=== PATIENT | male | born 1935 | race Caucasian/White ===

== ENCOUNTER 2023-03-31 16:24 | Emergency (ER) | payer MEDICARE, BC ==
[2023-03-31] VITALS (12 sets, daily range): BP systolic 99–153; BP diastolic 64–91
[~2023-03-31] VITALS: Ht 167.6 cm; Wt 76.0 kg
[2023-03-31 17:17] LABS: BASO% 0.6 % (0-3); EOS% 2.7 % (0-8); HEMATOCRIT 37.1 % (39.0-50.0); HEMOGLOBIN 11.5 g/dl (14.0-18.0); IMMATURE GRANULOCYTES 0.1 % (0.0-5.0); MEAN CELL VOLUME 82.4 fL CALC (80.0-100.0); MEAN CORPUSCULAR HGB 25.6 pG CALC (26.0-32.0); MONO% 9.8 % (2-13); NEUT# 5.1 thou/uL (1.82-7.42); NEUT% 75.8 % (42-76); RED BLOOD COUNT 4.5 mill/uL (4.70-6.10); RED CELL DISTRI WIDTH 16.7 % (11.5-15.5)
[2023-03-31 17:35] LABS: ALBUMIN 4.2 g/dL (3.2-5.0); BILIRUBIN, TOTAL 0.6 mg/dL (0.2-1.3); CREATININE 1.4 mg/dL (0.7-1.3); INTERNATIONAL NORMALIZED RATIO 1.4 RATIO (0.7-1.3); POTASSIUM 3.5 mmol/l (3.5-5.1); PROTHROMBIN TIME 13.6 SECONDS (9.0-12.5); TOTAL PROTEIN 6.5 g/dL (6.3-8.2)
[2023-03-31 19:13] LABS: URINE BILIRUBIN - DIPSTICK Negative (NEGATIVE); URINE BLOOD DIPSTICK Negative (NEGATIVE); URINE GLUCOSE - DIPSTICK 500 mg/dL (NEGATIVE); URINE KETONE Negative (NEGATIVE); URINE LEUK ESTERASE Negative (NEGATIVE); URINE NITRITE - DIPSTICK Negative (Negative); URINE PH 5.5 (4.5-8.0); URINE PROTEIN - DIPSTICK Negative (NEG-TRACE); URINE SPECIFIC GRAVITY 1.025; URINE UROBILINOGEN - DIPSTICK 0.2 E.U./dL (0.2)
[2023-03-31 19:14] LABS: URINE COLOR Yellow
== END 2023-03-31 22:00 | disposition short-term general hospital (02) ==
LOC: ED 16:24
PROVIDERS: Nurse Practitioner
DX: K62.5 Hemorrhage of anus and rectum (principal); I48.20 Chronic atrial fibrillation, unspecified; I10 Essential (primary) hypertension; E11.9 Type 2 diabetes mellitus without complications; K21.9 Gastro-esophageal reflux disease without esophagitis; Z85.46 Personal history of malignant neoplasm of prostate; Z92.3 Personal history of irradiation; Z79.01 Long term (current) use of anticoagulants
CPT/HCPCS: Q9967

== ENCOUNTER 2023-05-18 09:42 | Emergency (ER) | payer MEDICARE, BC ==
[~2023-05-18] VITALS: Ht 167.6 cm; Wt 74.8 kg
[2023-05-18] VITALS (15 sets, daily range): BP systolic 111–134; BP diastolic 75–97
[2023-05-18 10:36] LABS: BASO% 0.3 % (0-3); EOS% 0.1 % (0-8); HEMOGLOBIN 10.1 g/dl (14.0-18.0); IMMATURE GRANULOCYTES 0.2 % (0.0-5.0); LYMPH% 1.6 % (15-41); MEAN CELL VOLUME 78.5 fL CALC (80.0-100.0); MEAN CORPUSCULAR HGB 23.3 pG CALC (26.0-32.0); MEAN CORPUSCULAR HGB CONC 29.7 g/dL CAL (32.0-36.0); MONO% 6.3 % (2-13); NEUT# 9.92 thou/uL (1.82-7.42); NEUT% 91.5 % (42-76); RED BLOOD COUNT 4.33 mill/uL (4.70-6.10)
[2023-05-18 10:42] LABS: ALBUMIN 4.4 g/dL (3.2-5.0); CREATININE 1.4 mg/dL (0.7-1.3); POTASSIUM 3.4 mmol/l (3.5-5.1); TOTAL PROTEIN 6.8 g/dL (6.3-8.2)
[2023-05-18] MEDS ORDERED: HYDROCHLOROT12.5 M1 PO (11:21)
[2023-05-18] MEDS ORDERED: OMEPRAZOLE DR20 MG (11:21)
[2023-05-18] MEDS ORDERED: XARELTO20 MG PO (11:21)
[2023-05-18] MEDS ORDERED: FARXIGA5 MG (11:22)
[2023-05-18] MEDS ORDERED: TAMSULOSIN HCL0.4 MG PO (11:22)
[2023-05-18] MEDS ORDERED: LOPRESSOR25 M1 PO (11:23)
[2023-05-18] MEDS ORDERED: FUROSEMIDE 40 MG/4 ML SDV IV ONE (11:25)
[2023-05-18] MEDS ORDERED: cefTRIAXone SODIUM 2 GM in SODIUM CHLORIDE 0.9% 100 ML IV ONE (12:05)
[2023-05-18] MEDS ORDERED: ASPIRIN 81 MG/TAB PO ONE (15:55)
[2023-05-18] MEDS ORDERED: ENOXAPARIN SODIUM 100 MG/ML SYR SC ONE (16:45)
== END 2023-05-18 17:05 ==
LOC: ED 09:42
PROVIDERS: Family Medicine
DX: I11.0 Hypertensive heart disease with heart failure (principal); I50.9 Heart failure, unspecified; R79.89 Other specified abnormal findings of blood chemistry; I48.20 Chronic atrial fibrillation, unspecified; E11.9 Type 2 diabetes mellitus without complications; U07.1 COVID-19; R06.02 Shortness of breath; Z79.01 Long term (current) use of anticoagulants
CPT/HCPCS: J1650; Q9967